=== PATIENT | male | born 1945 | race Caucasian/White ===

== ENCOUNTER → 2024-02-25 10:29 | Outpatient (BNVA) | payer MEDICARE, SELFPAY | PROVIDERS: Visit Provider Psychiatry & Neurology Neurology | DX: S06.5XAA Traumatic subdural hemorrhage with loss of consciousness status unknown, initial encounter (principal); R41.3 Other amnesia; R29.90 Unspecified symptoms and signs involving the nervous system; Y99.9 Unspecified external cause status | CPT/HCPCS: 99203 ==

== ENCOUNTER 2024-03-17 12:41 | Outpatient (CLI) | payer MEDICARE, SELFPAY ==
[2024-03-17] MEDS: gadobenate dimeglumine 20 mL vial IV (13:35)
--- NOTE | 2024-03-17 13:45 | MR_ITS ---
WS: [id number] MRI HEAD WITH CONTRAST TECHNIQUE: Sagittal T1, T2 axial, T2 axial FLAIR, axial susceptibility weighted imaging, axial diffus ion weighted images, and coronal T2 images were obtained. Pre and post-T1 axial and post T1 coronal i mages. ADC and FSPGR images. CLINICAL INFORMATION: G93.6 - Cerebral edema COMPARISON: None. FINDINGS: No evidence of restricted diffusion to suggest acute ischemia. Ventricular system and basilar cistern s are patent. Mild small vessel changes. Moderate parenchymal volume loss. Parenchymal volume loss wo rse in the bilateral parietal lobes. Normal posterior fossa. Normal vascular flow voids at the skull base. No extra-axial fluid collection s. No evidence of mass or mass effect. Small vessel changes in the [place]. Mastoid effusions. Paranasal sinuses are well aerated. No hemosiderin on the susceptibly weighted images. Normal optic c hiasm and pituitary infundibulum. Mild symmetric atrophy temporal lobes and hippocampal formations. N ormal optic chiasm and pituitary infundibulum. No abnormal gadolinium enhancement. Normal dural venou s sinuses. Evidence of prior LEFT frontal parietal and RIGHT parietal postoperative changes IMPRESSION: 1. No evidence of restricted diffusion to suggest acute ischemia. 2. Mild small vessel changes. Moderate parenchymal volume loss. 3. Mild small vessel changes in the najma. 4. Parenchymal volume loss worse in the bilateral parietal lobes. 5. Mild symmetric atrophy temporal lobes and hippocampal formations. 6. Bilateral mastoid effusions. 7. Evidence of prior LEFT frontal parietal jb holes or craniotomy and RIGHT parietal jb hole. 8. No abnormal gadolinium enhancement.
== END 2024-03-17 12:42 | disposition home or self-care (01) ==
LOC: RAD 12:43
PROVIDERS: PCP Family Medicine; Visit Provider Psychiatry & Neurology Neurology
DX: G93.6 Cerebral edema (principal); G93.89 Other specified disorders of brain
CPT/HCPCS: 70553; A9577

== ENCOUNTER → 2024-06-04 13:47 | Outpatient (BNVA) | payer MEDICARE, SELFPAY | PROVIDERS: PCP Family Medicine; Visit Provider Psychiatry & Neurology Neurology | DX: S06.5XAA Traumatic subdural hemorrhage with loss of consciousness status unknown, initial encounter (principal); R41.3 Other amnesia; Y99.9 Unspecified external cause status | CPT/HCPCS: 99212 ==

== ENCOUNTER → 2025-01-22 09:51 | Outpatient (BNVA) | payer MEDICARE, SELFPAY | PROVIDERS: PCP Family Medicine; Referring Provider Family Medicine; Visit Provider Psychiatry & Neurology Neurology | DX: R41.3 Other amnesia (principal); S06.5XAA Traumatic subdural hemorrhage with loss of consciousness status unknown, initial encounter; R29.90 Unspecified symptoms and signs involving the nervous system; X58.XXXA Exposure to other specified factors, initial encounter | CPT/HCPCS: 0346U; 36415; 82247; 82542; 83520; 85025; 99212 ==